=== PATIENT | female | born 1960 | race Hispanic/Latino ===

== ENCOUNTER → 2021-08-04 | Outpatient (CLI) | payer OTHER ==
[~2021-08-04] MED LIST: ACET-3540 PO; CITA-106 PO; NITR100C4 PO; OXYB5 PO; PHEN-847 PO; PROG100C11 PO
== END | disposition home or self-care (01) ==
LOC: RAH 08:49
PROVIDERS: ATTEND Urology
DX: N13.39 Other hydronephrosis (principal)
CPT/HCPCS: 51600; 74430; Q9958

== ENCOUNTER → 2022-06-06 | Outpatient (CLI) | payer OTHER ==
[~2022-06-06] MED LIST changes: -OXYB5 PO; +OXYB5TAB16 PO
[2022-06-06 10:54] LABS: INR 0.94 (0.85-1.15); PROTHROMBIN TIME 10.3 SEC (9.6-11.6)
[2022-06-06 10:55] LABS: PARTIAL THROMBOPLASTIN TIME 30.7 SEC (26.3-35.5)
== END | disposition home or self-care (01) ==
LOC: RAH 09:13
PROVIDERS: ATTEND Obstetrics & Gynecology
DX: N63.15 Unspecified lump in the right breast, overlapping quadrants (principal); N63.10 Unspecified lump in the right breast, unspecified quadrant
CPT/HCPCS: 36415; 76641; 85610; 85730

== ENCOUNTER → 2022-07-17 | Outpatient (CLI) | payer OTHER ==
[~2022-07-17] MED LIST changes: +GADOTERATE MEGLUMINE 10 MMOL/20 ML VIAL IV ONE
== END | disposition home or self-care (01) ==
LOC: RAH 10:25
PROVIDERS: ATTEND Obstetrics & Gynecology
DX: N60.01 Solitary cyst of right breast (principal); N60.02 Solitary cyst of left breast; R92.2 Inconclusive mammogram
CPT/HCPCS: C8908; A9575; C8937; 77049